=== PATIENT | male | born 1955 | race Caucasian/White ===

== ENCOUNTER → 2017-04-05 | Outpatient (CLI) | payer BC ==
[~2017-04-05] MED LIST: CALCIUM 600 + D1 TA1 PO; CLINORIL200 M1 PO; PREDNISOLONE5 MG PO; TYLOX1 CAP 5/50
--- NOTE | ~2017-04-05 | CR126 ---
[facility]. [facility] A Service of [facility] & [facility] RADIOLOGY TEXT RESULTS PATIENT: PRABHAKAR RIVAS LOCATION: [facility] : 55 UNIT #: [id number] AGE: [address]: Jossy Trujillo MD SEX: M ORDER DR: [id number] [address] [address] [id number] O MR#: [id number] Acc #: [id number] NAME: PRABHAKAR RIVAS : 1955 SEX: M STUDY DATE/TIME: 04/05/2017 13:28 UNIT: [facility] ROOM: STUDY DESCRIPTION: CR Foot Complete Min 3 View Lt Attending Physician: Jossy Trujillo M.D. Referring Physician: Jossy Trujillo M.D. Ordering Physician: Jossy Trujillo M.D. Primary Care Physician: Johnny Saldaña Jr., M.D. MEDICAL IMAGING REPORT This report is preliminary unless electronic signature is present. EXAM Left foot, 3 views. HISTORY Bilateral foot pain for over 11 years. Neuropathy in both feet. FINDINGS Three views of the left foot demonstrates cystic or erosive changes about the fifth MTP joint primarily involving the fifth metatarsal head. There is some associated soft tissue swelling. Findings raise the concern for possible crystalline arthropathy such as gout. The remainder of the joint spaces appear maintained. Bone mineralization appears normal. IMPRESSION Multiple cystic changes or erosive changes about the fifth metatarsal head raises a concern for a possible crystalline arthropathy such as gout. There is some associated soft tissue swelling. Dictated by... Jia Gorman M.D. THIS IS AN ELECTRONICALLY VERIFIED REPORT Jia Gorman M.D. at 04/09/2017 10:16 AM FÉLIX/kedra TD: 04/05/2017 21:09 JOB #: [id number] MEDICAL IMAGING REPORT Page 1 of 1
--- NOTE | ~2017-04-05 | CR127 ---
[facility]. [facility] A Service of [facility] & [facility] RADIOLOGY TEXT RESULTS PATIENT: PRABHAKAR RIVAS LOCATION: [facility] : 55 UNIT #: [id number] AGE: [address]: Jossy Trujillo MD SEX: M ORDER DR: [id number] [address] [address] [id number] O MR#: [id number] Acc #: [id number] NAME: PRABHAKAR RIVAS : 1955 SEX: M STUDY DATE/TIME: 04/05/2017 13:26 UNIT: [facility] ROOM: STUDY DESCRIPTION: CR Foot Complete Min 3 View Rt Attending Physician: Jossy Trujillo M.D. Referring Physician: Jossy Trujillo M.D. Ordering Physician: Jossy Trujillo M.D. Primary Care Physician: Johnny Saldaña Jr., M.D. MEDICAL IMAGING REPORT This report is preliminary unless electronic signature is present. EXAM Right foot, 3 views. HISTORY 62-year-old male with bilateral foot pain, neuropathy in both feet. Symptoms for over 11 years. FINDINGS Three views of the right foot demonstrates no fracture or dislocation. Instrumentation is seen in the distal fibula from previous ORIF of the distal fibular fracture. Arthritic changes are noted at the ankle joint and also at the first MTP joint with a pattern most compatible with degenerative arthropathy or osteoarthritis. No erosive changes are identified. No periarticular calcifications. Bone mineralization normal. IMPRESSION 1. Arthritic change of the right ankle with evidence of previous ORIF of the distal fibular fracture which appears well healed. 2. Moderate arthritic changes first MTP joint. Dictated by... Jia Gorman M.D. THIS IS AN ELECTRONICALLY VERIFIED REPORT Jia Gorman M.D. at 04/09/2017 10:16 AM FÉLIX/kedar TD: 04/05/2017 20:56 JOB #: [id number] MEDICAL IMAGING REPORT Page 1 of 1
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
== END | disposition home or self-care (01) ==
LOC: SRAD 13:20
DX: M25.571 Pain in right ankle and joints of right foot (principal); M79.671 Pain in right foot; M79.672 Pain in left foot; G62.9 Polyneuropathy, unspecified; M25.475 Effusion, left foot; M19.071 Primary osteoarthritis, right ankle and foot
CPT/HCPCS: 73610; 73630